=== PATIENT | female | born 1950 | race Caucasian/White ===

== ENCOUNTER → 2017-03-06 | Outpatient (CLI) | payer MEDICARE, OTHER ==
[~2017-03-06] MED LIST: ALEVE220 MG PO; FISH OIL 1,4001 EACH PO; MAG-OX-400(241400 MG PO; POTASSIUM GLUC500 MG PO; RED YEAST RICE600 M1 PO; SYNTHROID25 MCG PO; TYLENOL EXTRA500 MG PO; VITAMIN D32000 UNIT PO; [UNRECOGNIZED DRUG - OTHER] PO
== END | disposition disaster alternative care site (69) ==
LOC: GBCOE 09:00
DX: Z12.31 Encounter for screening mammogram for malignant neoplasm of breast (principal)
CPT/HCPCS: G0202